=== PATIENT | male | born 1985 | race Caucasian/White ===

== ENCOUNTER 2020-10-28 16:55 | Emergency (ER) | payer OTHER, SELFPAY ==
--- NOTE | ~2020-10-28 | XR_ITS ---
EXAMINATION: XR ankle RT min 3V DATE: 10/28/2020 17:23 INDICATION: Right ankle injury. TECHNIQUE: 4 views of right ankle were obtained. COMPARISON: None. FINDINGS: Bone alignment is normal. No fracture. Joint spaces are well maintained. There is ankle sof t tissue swelling. IMPRESSION: 1. No fracture. Reviewed, dictated and finalized at location A. IMPRESSION: 1. No fracture.
--- NOTE | ~2020-10-28 | XR_ITS ---
EXAMINATION: XR knee LT 3V DATE: 10/28/2020 17:23 INDICATION: Left knee injury and pain and swelling. TECHNIQUE: 3 views of left knee were obtained. COMPARISON: None. FINDINGS: Bone alignment is normal. No fracture. There is mild osteoarthritis of patellofemoral mikie rtment characterized by tiny marginal osteophytes. There is no knee joint effusion. There is anterior soft tissue swelling. IMPRESSION: 1. Mild osteoarthritis of patellofemoral compartment. Reviewed, dictated and finalized at location A.
--- NOTE | ~2020-10-28 | XR_ITS ---
EXAMINATION: XR tibia fibula RT 2V DATE: 10/28/2020 17:23 INDICATION: Right lower leg injury. TECHNIQUE: 2 views of right tibia and fibula were obtained. COMPARISON: None. FINDINGS: Bone alignment is normal. No fracture. Joint spaces are normal. IMPRESSION: 1. No fracture. Reviewed, dictated and finalized at location A. IMPRESSION: 1. No fracture.
[2020-10-28 17:06] VITALS: BP 150/90; PULSE 97; RESP 16; TEMP 37.2; O2SAT 100
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
== END 2020-10-28 17:50 | disposition home or self-care (01) ==
PROVIDERS: Emergency Provider Nurse Practitioner
DX: S93.401A Sprain of unspecified ligament of right ankle, initial encounter (principal); S96.911A Strain of unspecified muscle and tendon at ankle and foot level, right foot, initial encounter; V86.15XA Passenger of 3- or 4- wheeled all-terrain vehicle (ATV) injured in traffic accident, initial encounter; S89.92XA Unspecified injury of left lower leg, initial encounter; K50.90 Crohn's disease, unspecified, without complications
CPT/HCPCS: 73562; 73590; 73610; 99214; G0463